=== PATIENT | male | born 1985 | race African-American/Black ===

== ENCOUNTER 2018-08-28 11:32 | Emergency (ER) | payer OTHER ==
[2018-08-28] MEDS ORDERED: IBUPROFEN 800 MG TABLET PO ONE (12:30)
[2018-08-28] MEDS ORDERED: ACETAMINOPHEN 325 MG TABLET PO ONE (12:30)
--- NOTE | 2018-08-28 12:32 | ER Document Report ---
ED Medical Screen (RME) - General Chief Complaint: Headache >24 hrs old Stated Complaint: HEADACHE Time Seen by Provider: 08/28/18 12:15 Mode of Arrival: Ambulatory Information source: Patient Notes: PATIENT PRESENTS TO THE ED FOR C/O STEINBERG SINCE TUESDAY. HE REPORTS THAT HE HAS PSTD, HIS MEDICATIONS HAVE BEEN CHANGED. Patient reports that he has been evaluated [facility]. He reports the medications have been changed but his headaches will happen when he has feelings. He reports history of suicidal homicidal ideations but denies them today. Denies trauma. Denies other symptoms such as fever vomiting diarrhea. Patient reports he will take Tylenol Motrin with some relief of symptoms but the headache returns. Denies history of STEINBERG/ migraines I have greeted and performed a rapid initial assessment of this patient. A comprehensive ED assessment and evaluation of the patient, analysis of test results and completion of the medical decision making process will be conducted by additional ED providers. TRAVEL OUTSIDE OF THE U[place] IN LAST 30 DAYS: No - Related Data Allergies/Adverse Reactions: No Known Allergies Allergy (Unverified 08/28/18 11:33) Past Medical History - Social History Chew tobacco use (# tins/day): No Frequency of alcohol use: Occasional Drug Abuse: None Renal/ Medical History: Denies: Hx Peritoneal Dialysis Physical Exam - Vital signs Vitals: Temp Pulse Resp BP Pulse Ox 98.4 F 90 16 151/81 H 97 08/28/18 11:54 08/28/18 11:54 08/28/18 11:54 08/28/18 11:54 08/28/18 11:54 Course - Vital Signs Vital signs: Temp Pulse Resp BP Pulse Ox 98.4 F 90 16 151/81 H 97 08/28/18 11:54 08/28/18 11:54 08/28/18 11:54 08/28/18 11:54 08/28/18 11:54
[2018-08-28 13:39] LABS: APPEARANCE,URINE CLEAR; BILIRUBIN,URINE NEGATIVE (NEGATIVE); COLOR,URINE YELLOW; GLUCOSE, URINE NEGATIVE (NEGATIVE); KETONES,URINE NEGATIVE (NEGATIVE); LEUKOCYTE ESTERASE,URINE NEGATIVE (NEGATIVE); NITRITE,URINE NEGATIVE (NEGATIVE); PROTEIN,URINE NEGATIVE (NEGATIVE); URINE SPECIFIC GRAVITY 1.019; UROBILINOGEN,URINE NEGATIVE mg/dL (<2.0)
[2018-08-28 13:53] LABS: URINE AMPHETAMINES SCREEN NEGATIVE; URINE BARBITURATES SCREEN NEGATIVE; URINE BENZODIAZEPINES SCREEN NEGATIVE; URINE COCAINE SCREEN NEGATIVE; URINE MARIJUANA (THC) SCREEN NEGATIVE; URINE METHADONE SCREEN NEGATIVE; URINE PHENCYCLIDINE SCREEN NEGATIVE
[2018-08-28 14:03] LABS: ABSOLUTE BASOPHILS # (AUTO) 0.1 10^3/uL (0.0-0.2); ABSOLUTE EOSINOPHILS # (AUTO) 0.1 10^3/uL (0.0-0.6); ABSOLUTE LYMPHOCYTES (AUTO) 2.8 10^3/uL (0.5-4.7); ABSOLUTE MONOCYTES (AUTO) 0.3 10^3/uL (0.1-1.4); ABSOLUTE NEUT (AUTO) 2.9 10^3/uL (1.7-8.2); BASOPHILS % (AUTO) 1.1 % (0-2); EOSINOPHILS % (AUTO) 2.4 % (0-6); HEMATOCRIT 45.1 % (37.9-51.0); LYMPHOCYTES % (AUTO) 44.4 % (13-45); MEAN CORPUSCULAR HEMOGLOBIN 27.9 pg (27.0-33.4); MEAN CORPUSCULAR HGB CONC 33.1 g/dL (32.0-36.0); MEAN CORPUSCULAR VOLUME 84 fl (80-97); MONOCYTES % (AUTO) 5.3 % (3-13); PLATELET COUNT 365 10^3/uL (150-450); RED BLOOD COUNT 5.36 10^6/uL (4.35-5.55); RED CELL DISTRIBUTION WIDTH 13.3 % (11.5-14.0); SEGMENTED NEUTROPHILS % (AUTO) 46.8 % (42-78); TOTAL CELLS COUNTED % (AUTO) 100 %; WHITE BLOOD COUNT 6.3 10^3/uL (4.0-10.5)
[2018-08-28 14:29] LABS: ALANINE AMINOTRANSFERASE 25 U/L (21-72); ALBUMIN 4.8 g/dL (3.5-5.0); ALKALINE PHOSPHATASE 86 U/L (38-126); ANION GAP 7 (5-19); ASPARTATE AMINO TRANSFERASE 24 U/L (17-59); BILIRUBIN,DIRECT 0.1 mg/dL (0.0-0.4); BILIRUBIN,TOTAL 0.5 mg/dL (0.2-1.3); BLOOD UREA NITROGEN 7 mg/dL (7-20); CALCIUM 10.4 mg/dL (8.4-10.2); CARBON DIOXIDE 32 mmol/L (22-30); CHLORIDE 101 mmol/L (98-107); GLUCOSE 83 mg/dL (75-110); POTASSIUM 4.2 mmol/L (3.6-5.0); SODIUM 140.1 mmol/L (137-145); TOTAL PROTEIN 8.1 g/dL (6.3-8.2)
[2018-08-28] MEDS ORDERED: KETOROLAC TROMETHAMINE INJ/PF 30 MG/1 ML SDV IM ONE (14:51)
[2018-08-28] MEDS ORDERED: DIPHENHYDRAMINE HCL 50 MG CAPSULE PO ONE (14:51)
--- NOTE | 2018-08-28 14:57 | ER Document Report ---
ED General - General Chief Complaint: Headache >24 hrs old Stated Complaint: HEADACHE Time Seen by Provider: 08/28/18 12:15 Mode of Arrival: Ambulatory TRAVEL OUTSIDE OF THE [place].S. IN LAST 30 DAYS: No - HPI Notes: Patient is a 33-year-old male with a history of bipolar, depression, anxiety, PTSD who presents to the emergency department complaining of continued intermittent headache over the last 6 days. Patient states that that was around the time that he had some medicine switched around by his [place] clinic for his mental health. Patient states that the headache is frontal and does have associated light and noise sensitivity is intermittently. Patient states that he is otherwise able to eat and drink without any difficulties. He is urinating normally and having normal bowel movements. Patient states that headaches are more pronounced when he has "up and down feelings." Tylenol and Motrin do help for his symptoms. Patient states he has not had migraines before. Denies any fever, head injury, neck pain, changes in vision/speech/mentation/hearing, URI, sore throat, chest pain, palpitations, syncope, cough, shortness of breath, wheeze, dyspnea, abdominal pain, nausea/vomiting/diarrhea, urinary retention, dysuria, hematuria, loss of control of bowel or bladder, numbness/tingling, saddle anesthesia, muscle paralysis/weakness, or rash. - Related Data Allergies/Adverse Reactions: No Known Allergies Allergy (Unverified 08/28/18 11:33) Past Medical History - General Information source: Patient - Social History Smoking Status: Former Smoker Chew tobacco use (# tins/day): No Frequency of alcohol use: Occasional Drug Abuse: None Family History: Reviewed & Not Pertinent Patient has suicidal ideation: No Patient has homicidal ideation: No Renal/ Medical History: Denies: Hx Peritoneal Dialysis Review of Systems - Review of Systems -: Yes All other systems reviewed and negative Physical Exam - Vital signs Vitals: Temp Pulse Resp BP Pulse Ox 98.4 F 90 16 151/81 H 97 08/28/18 11:54 08/28/18 11:54 08/28/18 11:54 08/28/18 11:54 08/28/18 11:54 - Notes Notes: PHYSICAL EXAMINATION: GENERAL: Well-appearing, well-nourished and in no acute distress. A&Ox4. Answers questions appropriately. HEAD: Atraumatic, normocephalic. Non-tender. EYES: Pupils equal round and reactive to light, extraocular movements intact, sclera anicteric, conjunctiva are normal. No nystagmus. vis patricia intact. ENT: EAC clear b/l. TM's intact b/l without erythema, fluid, or perforation. Nares patent and without discharge. oropharynx clear without exudates. No tonsilar hypertrophy or erythema. Moist mucous membranes. No sinus tenderness. NECK: Normal range of motion, supple without lymphadenopathy. No rigidity/meningismus. No midline tenderness. LUNGS: Breath sounds clear to auscultation bilaterally and equal. No wheezes rales or rhonchi. HEART: Regular rate and rhythm without murmurs, rubs, gallops. ABDOMEN: Soft, nontender, nondistended abdomen. No guarding, no rebound. Normal bowel sounds present. No CVA tenderness bilaterally. Musculoskeletal: Ext's b/l: FROM to passive/active. Strength 5+/5. No deficits noted. No bony tenderness of extremities. Extremities: No cyanosis, clubbing, or edema b/l. Peripheral pulses 2+. Capillary refill less than 2 seconds. NEUROLOGICAL: NIH 0. GCS 15. Cranial nerves grossly intact. Normal speech, normal gait. Normal sensory, motor exams. Reflexes 2+ b/l. RAGHU's negative. Pronator drift negative. Heel/dumont, finger/nose wnl. Rhomberg neg. PSYCH: Normal mood, normal affect. SKIN: Warm, Dry, normal turgor, no rashes or lesions noted. Course - Re-evaluation Re-evalutation: 08/28/18 17:09 Patient is an afebrile, well-hydrated, 33-year-old male who presents to the ED with a headache. Vitals are acceptable without any significant tachycardia, tachypnea, or hypoxia. PE is otherwise unremarkable for any focal neurological deficits. NIH 0, GCS 15, cranial nerves grossly intact. Patient had a panel of blood performed which was unremarkable for any acute pathology. CT scan was unremarkable. Patient was given Tylenol, Toradol, and Benadryl which did improve his headache. Patient states that his headache is still lingering, but is feeling better. Patient is nontoxic-appearing and is tolerating p.o. without any difficulties. He was evaluated by our psychology team who also [facility]. He has been reportedly having intermittent headaches before the medication change and has been seen by them before for this. Our psychology team does not recommend any medication changes at this time and recommend follow-up with the [place] clinic. I did review with Dr. Ramos who states no further work up warranted nor meds at this time. Low suspicion fo r any acute glaucoma, temporal arteritis, meningitis, intracranial hemorrhage, ischemic stroke, or fracture at this time. Patient is aware that this condition can change from initial presentation and that he needs to monitor symptoms closely for any acute changes. Recheck with your PCM/neurologist in 3-5 days. Return to the ED with any worsening/concerning symptoms otherwise as reviewed in discharge. Patient is in agreement. - Vital Signs Vital signs: Temp Pulse Resp BP Pulse Ox 98.4 F 90 16 151/81 H 97 08/28/18 11:54 08/28/18 11:54 08/28/18 11:54 08/28/18 11:54 08/28/18 11:54 - Laboratory Result Diagrams: 08/28/18 13:44 08/28/18 13:44 Laboratory results interpreted by me: 08/28/18 13:44 Carbon Dioxide 32 H Calcium 10.4 H Discharge - Discharge Clinical Impression: Headache Qualifiers: Headache type: unspecified Headache chronicity pattern: acute headache Intractability: not intractable Qualified Code(s): R51 - Headache Condition: Stable Disposition: HOME, SELF-CARE Instructions: Headache ([facility]) Additional Instructions: Rest, Ice/cool compress Tylenol/ibuprofen as needed Light stretches daily Strength exercises as able Moist heat and massage may help F/u with your PCP in 2-3 days for a recheck Consider consult(s) with Neurology for ongoing/worsening symptoms Return to the ED with any worsening symptoms and/or development of fever, headache, changes in behavior/mentation/vision/speech, chest pain, palpitations, syncope, shortness of breath, trouble breathing, abdominal pain, n/v/d, blood in stool/urine, loss of control of bowel/bladder, urinary retention, muscle weakness/paralysis, saddle anesthesia, numbness/tingling, or other worsening symptoms that are concerning to you. Forms: Elevated Blood Pressure Referrals: REUBEN MULLINS MD [NO LOCAL MD] - Follow up as needed
--- NOTE | 2018-08-28 15:21 | PSYCHOLOGICAL NOTE ---
Psych Note - Psych Note Date seen by psych provider: 08/28/18 Psych Note: PATIENT PRESENTS TO THE ED FOR C/O STEINBERG SINCE TUESDAY. HE REPORTS THAT HE HAS PSTD, HIS MEDICATIONS HAVE BEEN CHANGED. Patient reports that he has been evaluated [facility]. He reports the medications have been changed but his headaches will happen when he has feelings. Behavior health team contacted [place] [facility], [place] [facility] nurse. She reports the patient has diagnosis of bipolar 2, major depressive disorder with a history of alcoholism. Patient has been sober for over a year. She discloses that the patient came to the clinic on 08/18/2018 where he disclosed that he has been having a headache starting the week prior. During that visit his medication changes were made to start Depakote. She reports that the patient was supposed to be taking 500 mg daily until the and then increase it to 1000 mg daily. She reports that the patient returned on 08/22/2018 with concerns of headache, called [facility] on 08/26/2018 and then came in again today 08/28/2018 with comfort concerns of a headache. She reports that per notes the patient's headaches have been consistent before medication changes which is why they said referred the patient to come to [facility] ED.
--- NOTE | 2018-08-28 15:50 | RADIOLOGY REPORT (SQ) ---
EXAM DESCRIPTION: CT HEAD WITHOUT COMPLETED DATE/TIME: 08/28/2018 3:39 pm REASON FOR STUDY: STEIBNERG COMPARISON: None. TECHNIQUE: Axial images acquired through the brain without intravenous contrast. Images reviewed wi th bone, brain and subdural windows. Images stored on PACS. All CT scanners at this facility use dose modulation, iterative reconstruction, and/or weight based d osing when appropriate to reduce radiation dose to as low as reasonably achievable (ALARA). [facility]: Dose Right [facility]: CareDose [facility]: Dose Right [facility]: Teradose 4D [facility]: [employer] RADIATION DOSE: CT Rad equipment meets quality standard of care and radiation dose reduction techniq ues were employed. CTDIvol: 48.6 mGy. DLP: 904 mGy-cm. mGy. LIMITATIONS: None. FINDINGS: VENTRICLES: Normal size and contour. CEREBRUM: No masses. No hemorrhage. No midline shift. No evidence for acute infarction. Normal gra y/white matter differentiation. No areas of low density in the white matter. CEREBELLUM: No masses. No hemorrhage. No alteration of density. No evidence for acute infarction. EXTRAAXIAL SPACES: No fluid collections. No masses. ORBITS AND GLOBE: No intra- or extraconal masses. Normal contour of globe without masses. CALVARIUM: No fracture. PARANASAL SINUSES: No fluid or mucosal thickening. SOFT TISSUES: No mass or hematoma. OTHER: No other significant finding. IMPRESSION: NORMAL BRAIN CT WITHOUT CONTRAST. EVIDENCE OF ACUTE STROKE: NO. COMMENT: Quality ID # [id number]: Final reports with documentation of one or more dose reduction techniques (e.g., Automated exposure control, adjustment of the mA and/or kV according to patient size, use of iterative reconstruction technique) TECHNICAL DOCUMENTATION: JOB ID: [id number] [email or web address] All Rights Reserved Reading location - IP/workstation name: [email or web address]
[2018-08-28 17:22] VITALS: BP 149/93
--- NOTE | 2018-08-29 00:11 | EKG REPORT ---
SEVERITY:- NORMAL ECG - SINUS RHYTHM : Confirmed by: Laith Richardson 29-Aug-2018 00:10:43
== END 2018-08-28 17:10 | disposition home or self-care (01) ==
LOC: ER 11:32
DX: R51 Headache (principal); Z87.891 Personal history of nicotine dependence
CPT/HCPCS: 93005; 99285; 36415; 85025; 80053; 81001; 80307; 70450; 93010; J1885

== ENCOUNTER 2018-09-09 01:02 | Emergency (ER) | payer OTHER ==
--- NOTE | 2018-09-09 01:23 | ER Document Report ---
ED Medical Screen (RME) - General Chief Complaint: Suicidal Ideation Stated Complaint: PSYCH ISSUE Time Seen by Provider: 09/09/18 01:20 Notes: 33-year-old male with chief complaint of suicidal ideations. He states that he cannot get the thoughts out of his head that his mom is going to beat him, he states that he keeps thinking this over and over, he states that it has gotten to the point that he is considered shooting himself in the head. [place] administration, takes Seroquel, recently was taken off of Depakote 500 mg because of the possibility that it is giving him headaches (on Tuesday). He denies any sick symptoms or other complaints. TRAVEL OUTSIDE OF THE [place].S[place] IN LAST 30 DAYS: No - Related Data Allergies/Adverse Reactions: No Known Allergies Allergy (Unverified 08/28/18 11:33) Past Medical History Renal/ Medical History: Denies: Hx Peritoneal Dialysis Physical Exam - Vital signs Vitals: Temp Pulse Resp BP Pulse Ox 98.3 F 90 20 152/90 H 99 09/09/18 01:09 09/09/18 01:09 09/09/18 01:09 09/09/18 01:09 09/09/18 01:09 - Psychological Associated symptoms: Other - Patient agitated, tearful, clasping his hands together very tightly, difficult to keep calm Course - Vital Signs Vital signs: Temp Pulse Resp BP Pulse Ox 98.3 F 90 20 152/90 H 99 09/09/18 01:09 09/09/18 01:09 09/09/18 01:09 09/09/18 01:09 09/09/18 01:09
[2018-09-09 01:48] LABS: ABSOLUTE BASOPHILS # (AUTO) 0.1 10^3/uL (0.0-0.2); ABSOLUTE EOSINOPHILS # (AUTO) 0.2 10^3/uL (0.0-0.6); ABSOLUTE LYMPHOCYTES (AUTO) 3.8 10^3/uL (0.5-4.7); ABSOLUTE MONOCYTES (AUTO) 0.4 10^3/uL (0.1-1.4); ABSOLUTE NEUT (AUTO) 3.8 10^3/uL (1.7-8.2); BASOPHILS % (AUTO) 0.6 % (0-2); EOSINOPHILS % (AUTO) 2.8 % (0-6); HEMOGLOBIN 14.7 g/dL (13.5-17.0); MEAN CORPUSCULAR HEMOGLOBIN 27.7 pg (27.0-33.4); MEAN CORPUSCULAR HGB CONC 32.8 g/dL (32.0-36.0); MEAN CORPUSCULAR VOLUME 85 fl (80-97); MONOCYTES % (AUTO) 5.1 % (3-13); PLATELET COUNT 363 10^3/uL (150-450); RED BLOOD COUNT 5.32 10^6/uL (4.35-5.55); RED CELL DISTRIBUTION WIDTH 13.5 % (11.5-14.0); SEGMENTED NEUTROPHILS % (AUTO) 45.5 % (42-78); TOTAL CELLS COUNTED % (AUTO) 100 %; WHITE BLOOD COUNT 8.2 10^3/uL (4.0-10.5)
--- NOTE | 2018-09-09 01:52 | ER Document Report ---
ED General - General Chief Complaint: Suicidal Ideation Stated Complaint: PSYCH ISSUE Time Seen by Provider: 09/09/18 01:20 Notes: Patient is a 33-year-old male presents with complaint of having thoughts of suicide. Patient says that he has been having thoughts in his head of wanting to hurt himself. He says he has tried to hurt himself in the past. Patient says that he was on Depakote but that was recently stopped because that they thought it was giving him headaches. He says he still sometimes gets headaches despite being taken off Depakote. He is on Seroquel. He said he got to the point where he thought about shooting himself and therefore he came to the ER. He has no other complaints at this time. TRAVEL OUTSIDE OF THE [place] IN LAST 30 DAYS: No - Related Data Allergies/Adverse Reactions: No Known Allergies Allergy (Unverified 08/28/18 11:33) Past Medical History - Social History Smoking Status: Unknown if Ever Smoked Frequency of alcohol use: None Drug Abuse: None Family History: Reviewed & Not Pertinent Renal/ Medical History: Denies: Hx Peritoneal Dialysis Review of Systems - Review of Systems Notes: My Normal Review Basic REVIEW OF SYSTEMS: CONSTITUTIONAL : Denies fever, chills, or sweats. Denies recent illness. EENT: Denies eye, ear, throat, or mouth pain or symptoms. Denies nasal or sinus congestion. RESPIRATORY: Denies cough, cold, or chest congestion. Denies shortness of breath, difficulty breathing, or wheezing. GASTROINTESTINAL: Denies abdominal pain. Denies nausea, vomiting, or diarrhea. MUSCULOSKELETAL: Denies neck or back pain or joint pain or swelling. NEUROLOGICAL: Denies altered mental status or loss of consciousness. Intermittent headache. Denies weakness or paralysis or loss of use of either side. Denies problems with gait or speech. Denies sensory or motor loss. PSYCHIATRIC: depression. Suicidal ideations. ALL OTHER SYSTEMS REVIEWED AND NEGATIVE. Physical Exam - Vital signs Vitals: Temp Pulse Resp BP Pulse Ox 98.3 F 90 20 152/90 H 99 09/09/18 01:09 09/09/18 01:09 09/09/18 01:09 09/09/18 01:09 09/09/18 01:09 - Notes Notes: General Appearance: Well nourished, alert, cooperative, no acute distress, no obvious discomfort. Well-appearing. Vitals: reviewed, See vital signs table. Head: no swelling or tenderness to the head Eyes: PERRL, EOMI, Conjuctiva clear Mouth: No decreasd moisture Neck: Supple, no neck tenderness, No thyromegaly Lungs: No wheezing, No rales, No rhonci, No accessory muscle use, good air exchange bilaterally. Heart: Normal rate, Regular rythm, No murmur, no rub Abdomen: Normal BS, soft, No rigidity, No abdominal tenderness, No guarding, no rebound, no abdominal masses, no organomegaly Extremities: strength 5/5 in all extremities, good pulses in all extremities, no swelling or tenderness in the extremities, no edema. Skin: warm, dry, appropriate color, no rash Neuro: speech clear, oriented x 3, normal affect, responds appropriately to questions. Renal nerves II through XII are intact. Distal sensation intact. Patient moves all extremities without difficulty. Normal coordination of extremity movements. Course - Re-evaluation Re-evalutation: 09/09/18 06:00 Patient is medically stable for psychiatric evaluation. Dictation of this chart was performed using voice recognition software; therefore, there may be some unintended grammatical errors. - Vital Signs Vital signs: Temp Pulse Resp BP Pulse Ox 98.3 F 90 20 152/90 H 99 09/09/18 01:09 09/09/18 01:09 09/09/18 01:09 09/09/18 01:09 09/09/18 01:09 - Laboratory Result Diagrams: 09/09/18 01:25 09/09/18 01:25 Laboratory results interpreted by me: 09/09/18 09/09/18 09/09/18 01:25 01:25 01:25 Lymphocytes % 46.0 H Calcium 10.5 H Total Protein 8.7 H Albumin 5.2 H Urine Blood MODERATE H Salicylates < 1.0 L Acetaminophen < 10 L - EKG Interpretation by Me Additional EKG results interpreted by me: 09/09/18 01:51 EKG is reviewed and interpreted by me. EKG shows sinus rhythm with a rate of [address] segment elevation or depression. No ischemic T wave inversions. LA interval, QRS duration, QT intervals are within normal range. Old EKG for comparison is from Aug 28 2018. Discharge - Discharge Clinical Impression: Depression Qualifiers: Depression Type: unspecified Qualified Code(s): F32.9 - Major depressive di sorder, single episode, unspecified Disposition: PSYCH HOSP/UNIT
[2018-09-09 01:53] LABS: APPEARANCE,URINE CLEAR; BILIRUBIN,URINE NEGATIVE (NEGATIVE); COLOR,URINE YELLOW; GLUCOSE, URINE NEGATIVE (NEGATIVE); KETONES,URINE NEGATIVE (NEGATIVE); LEUKOCYTE ESTERASE,URINE NEGATIVE (NEGATIVE); NITRITE,URINE NEGATIVE (NEGATIVE); PROTEIN,URINE NEGATIVE (NEGATIVE); UROBILINOGEN,URINE NEGATIVE mg/dL (<2.0)
[2018-09-09 02:00] LABS: ALANINE AMINOTRANSFERASE 25 U/L (21-72); ALBUMIN 5.2 g/dL (3.5-5.0); ALKALINE PHOSPHATASE 81 U/L (38-126); ANION GAP 13 (5-19); ASPARTATE AMINO TRANSFERASE 26 U/L (17-59); BILIRUBIN,DIRECT 0.3 mg/dL (0.0-0.4); BILIRUBIN,TOTAL 0.5 mg/dL (0.2-1.3); BLOOD UREA NITROGEN 14 mg/dL (7-20); CALCIUM 10.5 mg/dL (8.4-10.2); CARBON DIOXIDE 30 mmol/L (22-30); CHLORIDE 98 mmol/L (98-107); GLUCOSE 86 mg/dL (75-110); POTASSIUM 4.2 mmol/L (3.6-5.0); SODIUM 140.8 mmol/L (137-145); TOTAL PROTEIN 8.7 g/dL (6.3-8.2)
[2018-09-09 02:05] LABS: ACETAMINOPHEN < 10 ug/mL (10-30); ALCOHOL < 10 mg/dL (NONE DETECTED); SALICYLATE < 1.0 mg/dL (2.0-20.0)
[2018-09-09] MEDS ORDERED: ACETAMINOPHEN 325 MG TABLET PO ONE (02:06)
[2018-09-09 02:09] LABS: URINE AMPHETAMINES SCREEN NEGATIVE; URINE BARBITURATES SCREEN NEGATIVE; URINE BENZODIAZEPINES SCREEN NEGATIVE; URINE COCAINE SCREEN NEGATIVE; URINE MARIJUANA (THC) SCREEN NEGATIVE; URINE METHADONE SCREEN NEGATIVE; URINE PHENCYCLIDINE SCREEN NEGATIVE
--- NOTE | 2018-09-09 08:57 | EKG REPORT ---
SEVERITY:- NORMAL ECG - SINUS RHYTHM : Confirmed by: Martha Oakley MD 09-Sep-2018 08:57:17
--- NOTE | 2018-09-09 09:23 | ER Document Report ---
Doctor's Note Notes: 09/09/18 09:21 33-year-old male with past medical history of a suicide attempt in the past with thoughts of injuring himself with a gun. No auditory visual hallucinations. Supposedly not taking his prescribed Depakote but is taking Seroquel. Labs and vital signs as recorded.
[2018-09-09] MEDS: DIVALPROEX SODIUM 500 MG TAB.SR.24H PO SCH ×2 (10:24→17:50)
--- NOTE | 2018-09-09 12:22 | PSYCHOLOGICAL NOTE ---
Psych Note - Psych Note Date seen by psych provider: 09/09/18 Time seen by psych provider: 07:50 Psych Note: Reason for consult: Suicidal ideation Patient reports they came to [facility] ED because he was having thoughts of harming himself. He states that on Tuesday he stopped taking his Depakote after [facility]. He states that he thought they are going to increase it to 1000 mg daily as he was taking 500 mg daily however they said to just stop taking it. He reports that they were doing this because he has been dealing with headaches now for the last 3 weeks. He reports they did not take him off the Seroquel at night. He discloses that he currently has suicidal ideation however does have a history of suicidal and homicidal ideation last being in May 2018. He reports that he currently only has suicidal ideation and came to [facility] ED because "I had a vision of blowing my brains out with my pistol." He reports he does have access to the weapon in the home so came to [facility] for assistance. Patient is alert and orientated to person, place, time and circumstance. Mood is euthymic with congruent affect. Patient endorses suicidal ideation denies current homicidal ideation. Reports a history of homicidal ideation. Delusions are absent behaviors congruent with an intact reality based presentation i.e. organized and linear thought process. Eye contact is good. Conversational speech is normal rate, tone and prosody. Intellectual abilities appear to be within the average range. Attention and concentration are good. Insight, judgment, impulse control are fair as evidenced by coming to [facility] ED immediately when having suicidal ideation with plan. Medication recommendations per [facility]'s contracted psychiatrist Dr. Gab ZAMUDIO are as follows please discontinue home medication of Seroquel please restart home medication of Depakote 500 mg twice daily Please start Topamax 25 mg nightly for 1 week then increase to 25 mg twice daily for 1 week then increase again to 50 mg twice daily Diagnosis Bipolar 2 disorder per history provided by the [facility] Major depressive disorder per history provided by the [facility] History of alcohol use disorder per [facility] by the [facility]; current status continued sobriety for about 1 year Pression\\plan: Patient is recommended for IVC petition for overnight mental health observation. Patient reports thoughts of suicidal ideation since stopping his Depakote on Tuesday after being advised by his mental health provider to stop. He reports that they were stopping the Depakote thinking that it is possible it was causing his headaches. Medication recommendations have been provided. It is currently believe the patient is experiencing suicidal ideation after the abrupt stop of his medications. Patient does demonstrate good judgment and impulse control on coming to [facility] ED immediately for assistance when having suicidal ideation with plan. Patient be reevaluated. Dr. Camarillo was consulted and care management of this patient; attending physicians in agreement with recommendations and disposition.
[2018-09-09] MEDS ORDERED: TOPIRAMATE 25 MG TABLET PO SCH (22:00)
--- NOTE | 2018-09-10 09:17 | ER Document Report ---
Doctor's Note Notes: 09/10/18 09:15 33-year-old male with history of depression who presented with medication noncompliance with suicidal ideations with plan with possibly shooting himself with a gun. Medications have been adjusted here at this facility. Continued psychiatry/psychology evaluation. Vital signs have been stable overnight with no acute complaints. 09/10/18 13:18 The psychology/psychiatry team has seen and assessed the patient. They do not believe that the patient is a harm to himself or others at this time. They do not believe that the patient feels IVC criteria at this moment. Patient's friend is here to pick and shovel worker the patient. He is the one who is holding the gun. He states that he would lock up the gun so that it is safe from the patient. He is very comfortable taking the patient home. Patient denies any suicidal ideations at this time. He denies any auditory or visual hallucinations. Patient will be discharged home on the new Topamax medications in addition to his other medications he takes chronically and follow-up with outpatient resources as discussed.
--- NOTE | 2018-09-10 14:14 | PSYCHOLOGICAL NOTE ---
Psych Note - Psych Note Date seen by psych provider: 09/10/18 Time seen by psych provider: 07:50 Psych Note: Reason for consult: Suicidal ideation Check in conducted with patient Patient's mood is euthymic with congruent affect as evidenced by smiling laughing with clinician. Patient openly engages discusses both triggers, coping skills and upcoming mental health appointments. Patient reports that on Tuesday [facility]. Patient has individual therapy on Tuesday, group therapy on Tuesday, medication management for mental health on September 20. He reports that on the weeks that he does not have a medication appointment with mental health they do a checkup via phone with him so he has contact with them weekly. Patient denies any thoughts of wanting to harm himself or others. He reports that his headache is down to a level 3 and states that this is the first time he has gotten this low since they started. He reports that they are normally between a 5 and a 7. He states that he identifies his triggers as memories that remind him of negative childhood experiences and the "dysfunction of war." He discloses that he is very good at self reflecting to identify why he is feeling what he is feeling and is strongly feels that he when he presented to [facility] was because he was stopped off of the Depakote. He reports that he does not have access to weapon at home unless the supervisor natural gas plant of the weapon "does not sleep in the bedroom where the lao is." He discloses that this is not normally an issue however because of the way he was feeling he knew it would be beneficial to remove himself from the home completely so he did not have temptation. He denies currently wanting to harm himself and agrees to allow clinician to speak with the family member/supervisor natural gas plant of the gun. Clinician spoke with patient's roommate/supervisor natural gas plant of gun. He confirms the patient does not have access to the weapon and will take extra steps to ensure to the patient does not have access. Medication recommendations per [facility]'s contracted psychiatrist Dr. Gab ZAMUDIO are as follows please discontinue home medication of Seroquel please restart home medication of Depakote 500 mg twice daily Please start Topamax 25 mg nightly for 1 week then increase to 25 mg twice daily for 1 week then increase again to 50 mg twice daily Diagnosis Bipolar 2 disorder per [facility] Major depressive disorder per history provided by the [place] History of alcohol use disorder per [facility]; current status continued sobriety for about 1 year Impression\\plan: Patient is recommended for rescind of IVC and is cleared from acute psychiatric services. Patient presents calm and openly engaged with clinician. Patient has upcoming [facility] and [facility], Tuesday for individual therapy, Tuesday for group therapy, Tuesday he will be receiving a phone call from behavioral health as a check-in and then September 20 medication appointment for his mental health. Patient is recommended to follow-up with these previously scheduled appointments. Patient demonstrates good insight, judgment and impulse control in discussing triggers, coping skills and thoughts on how to ensure continued safety. Patient disclosed that he does not have access to the weapon in the home however when the supervisor natural gas plant is not sleeping in the room he may be able to obtain access. Clinician spoke with patient's roommate/supervisor natural [employer] of gun who confirms they will take extra steps to ensure the patient does not have access. Patient denies any thoughts of wanting to harm himself or others and that he just wants to ensure safety while going through his medication changes. Dr. Camarillo was consulted and care management of this patient; attending physicians in agreement with recommendations and disposition.
[2018-09-10 14:23] VITALS: BP 146/89
== END 2018-09-10 01:58 | disposition home or self-care (01) ==
LOC: ER 01:02
DX: F31.81 Bipolar II disorder (principal); F43.10 Post-traumatic stress disorder, unspecified; R45.851 Suicidal ideations; R51 Headache; Z79.899 Other long term (current) drug therapy
CPT/HCPCS: 93005; 99285; 36415; 80307 ×4; 85025; 80053; 81001; 93010; J3490

== ENCOUNTER 2019-06-24 17:16 | Emergency (ER) | payer OTHER ==
--- NOTE | 2019-06-24 18:06 | ER Document Report ---
ED General - General Chief Complaint: Penile Problem Stated Complaint: PENILE PROBLEM Time Seen by Provider: 06/24/19 17:40 [facility]: [facility] [Primary Care Provider] - Follow up as needed Notes: 33-year-old male presents the emergency department complaining of an inability to reduce his foreskin since 9 AM this morning when he retracted his foreskin to wash. Patient states that he is not currently having pain but it was previously painful. Patient denies diabetes, has not ever had this happen before, denies trauma. When asked about discharge states that he has the usual discharge associated with being uncircumcised but does not have any additional discharge, does not have any increasing discharge, does not have any discharge from the urethra itself. TRAVEL OUTSIDE OF THE [place] IN LAST 30 DAYS: No - Related Data Allergies/Adverse Reactions: No Known Allergies Allergy (Verified 06/24/19 17:41) Past Medical History - General Information source: Patient - Social History Smoking Status: Former Smoker Frequency of alcohol use: None Drug Abuse: None Family History: Reviewed & Not Pertinent Patient has suicidal ideation: No Patient has homicidal ideation: No Renal/ Medical History: Denies: Hx Peritoneal Dialysis Psychiatric Medical History: Reports: Hx Bipolar Disorder Past Surgical History: Reports: Hx Tonsillectomy Review of Systems - Review of Systems Constitutional: No symptoms reported Male Genitourinary: See HPI Musculoskeletal: No symptoms reported Skin: See HPI -: Yes All other systems reviewed and negative Physical Exam - Vital signs Vitals: Temp Pulse Resp BP Pulse Ox 99.2 F 100 16 155/88 H 95 06/24/19 17:33 06/24/19 17:33 06/24/19 17:33 06/24/19 17:33 06/24/19 17:33 Interpretation: Hypertensive - General General appearance: Appears well, Alert In distress: None - HEENT Head: Normocephalic, Atraumatic Eyes: Normal Pupils: PERRL Mucous membranes: Moist - Respiratory Respiratory status: No respiratory distress - Cardiovascular Normal capillary refill: Yes - Genitourinary Notes: Paraphimosis noted, patient is uncircumcised, glans is swollen, mildly erythematous, small amount of whitish discharge noted around grossly edematous foreskin. Penis is otherwise normal, no urethral discharge. Course - Re-evaluation Re-evalutation: 06/24/19 18:01 Steady pressure was held on the glans and foreskin and paraphimosis was reduced over the course of approximately 90 seconds. No further pain or swelling noted, no discharge noted. Accu-Chek will be checked, patient will be started on topical antifungal and recommended to follow-up with urology as an outpatient. 06/24/19 18:01 06/24/19 18:06 Accu-Chek 105, unlikely diabetes. - Vital Signs Vital signs: Temp Pulse Resp BP Pulse Ox 99.2 F 100 16 155/88 H 95 06/24/19 17:33 06/24/19 17:33 06/24/19 17:33 06/24/19 17:33 06/24/19 17:33 Discharge - Discharge Clinical Impression: Paraphimosis Condition: Stable Disposition: HOME, SELF-CARE Additional Instructions: Please watch carefully without retracting the foreskin for the next 24 hours. Please apply the topical antifungal cream to your penis twice a day for the next 7 days. Please follow-up with urologist as an outpatient for further discussion of how to prevent this in the future. Prescriptions: Butenafine HCl [Lotrimin Ultra 1% Cream] 1 applic TP BID #1 tube [facility]: [facility] [Primary [facility]] - Follow up as needed
[2019-06-24 18:11] VITALS: BP 148/92
== END 2019-06-24 18:12 | disposition home or self-care (01) ==
LOC: ER 17:16
DX: N47.2 Paraphimosis (principal); Z87.891 Personal history of nicotine dependence
CPT/HCPCS: 82962